=== PATIENT | male | born 1975 | race Caucasian/White ===

== ENCOUNTER 2021-02-15 02:03 | Emergency (ER) | payer SELFPAY ==
[~2021-02-15] VITALS: Ht 182.9 cm; Wt 99.8 kg
[2021-02-15 02:05] VITALS: BP 149/92
[2021-02-15] MEDS ORDERED: SULF1TAB48 PO (02:14)
[2021-02-15] MEDS ORDERED: CEPH500C2 PO (02:14)
== END 2021-02-15 02:44 | disposition home or self-care (01) ==
LOC: ER 02:07
DX: L03.115 Cellulitis of right lower limb (principal); J45.909 Unspecified asthma, uncomplicated; F17.200 Nicotine dependence, unspecified, uncomplicated; Z79.899 Other long term (current) drug therapy

== ENCOUNTER 2024-02-07 23:36 | Emergency (ER) | payer MEDICAID, OTHER ==
[~2024-02-07] VITALS: Ht 182.9 cm; Wt 99.8 kg
[~2024-02-07 23:36] MED LIST: CEPH500C2 PO; SULF1TAB48 PO
[2024-02-07 23:46] VITALS: BP 154/89; TEMP 98.2; O2SAT 99
[2024-02-07] MEDS ORDERED: CEPH500T PO (23:49)
[2024-02-07] MEDS ORDERED: SULF1TAB48 PO (23:49)
== END 2024-02-07 23:58 | disposition left against medical advice (07) ==
LOC: ER 23:41
DX: L03.116 Cellulitis of left lower limb (principal); M25.522 Pain in left elbow; M25.562 Pain in left knee; J45.909 Unspecified asthma, uncomplicated; F19.10 Other psychoactive substance abuse, uncomplicated; F17.200 Nicotine dependence, unspecified, uncomplicated; V00.131A Fall from skateboard, initial encounter; Y93.89 Activity, other specified; Y92.89 Other specified places as the place of occurrence of the external cause; Y99.8 Other external cause status